=== PATIENT | female | born 1985 | race Caucasian/White ===

== ENCOUNTER 2016-12-06 07:43 | Day surgery (SDC) | payer MEDICARE ==
[~2016-12-06] VITALS: Ht 160 cm; Wt 53.1 kg
[2016-12-06 08:30] LABS: BASOPHILS 0.1 % (0-2); EOSINOPHILS 0.1 % (0-7); HEMOGLOBIN 14.5 g/dL (12-16); IMMATURE GRANULOCYTES 0.4 % (0-5); LYMPHOCYTES 13.2 % (15-50); MCH 28.9 pg (26.0-34.0); MCHC 30.9 g/dL (31.0-37.0); MCV 93.8 fL (80.0-100.0); MEAN PLATELET VOLUME 10.2 fL (7.4-10.4); MONOCYTES 5.6 % (2-11); NEUTROPHILS 80.6 % (40-80); PLATELET COUNT 203 10x3/uL (130-400); RBC 5.01 10x6/uL (4.00-5.40); RDW 17.9 % (11.5-14.5); WBC 8.2 10x3/uL (4.8-10.8)
[2016-12-06 08:40] LABS: ANION GAP 17.5 mmol/L (8-16); CALCIUM 10.1 mg/dL (8.5-10.1); CARBON DIOXIDE 25.5 mmol/L (21.0-32.0); CREATININE - SERUM 4.3 mg/dL (0.6-1.3)
[2016-12-06 08:41] LABS: APTT 29.4 SECONDS (22.8-39.4); INR 1.12 (0.85-1.17); PROTIME 14.3 SECONDS (11.6-15.0)
[2016-12-06] MEDS ORDERED: SANTYL30 GM TP (08:45)
[2016-12-06] MEDS ORDERED: BAYER CHEWABLE81 MG PO (08:46)
[2016-12-06] MEDS ORDERED: CLEOCIN HCL300 MG PO (08:48)
[2016-12-06] MEDS ORDERED: ULTRAM50 MG PO (08:48)
[2016-12-06 08:57] VITALS: BP 151/113; Ht 160 cm; Wt 53.1 kg
[2016-12-06] MEDS ORDERED: COREG6.25 MG PO (09:33)
[2016-12-06] MEDS ORDERED: HYDROCODON-ACE1 EAC7 PO (13:59)
--- NOTE | 2016-12-06 15:35 | NUR ---
DISCHARGE INSTRUCTIONS REVIEWED WITH PATIENT, AWAITING HEPARIN FOR FLUSHING DIALYSIS CATHETER BEFORE DISCHARGE
--- NOTE | 2016-12-06 16:12 | NUR ---
DIALYSIS CATHETER FLUSHED WITH 1.6 ML OF 1000 UNITS/ML, PATIENT DISCHARGED HOME VIA WHEELCHAIR TO PRIVATE VEHICLE WITH SPOUSE
--- NOTE | 2016-12-10 10:42 | OP ---
PATIENT NAME: JOHN CARMONA MEDICAL RECORD: [id number] :85 LOCATION:[facility] ADMISSION DATE: SURGEON: CHIQUI GOMEZ MD DATE OF OPERATION: 12/06/2016 REFERRED BY: Esperanza Schuler MD. PREOPERATIVE DIAGNOSES: End-stage renal disease and dependent on hemodialysis, presently catheter dependent and needs a long-term dialysis access. POSTOPERATIVE DIAGNOSES: End-stage renal disease and dependent on hemodialysis, presently catheter dependent and needs a long-term dialysis access. OPERATION PERFORMED: Right arm brachial artery to basilic vein Isabel type AV fistula, first of two planned operation to create a brachial artery to translocated basilic vein AV fistula. SURGEON: Chiqui Gomez MD. ANESTHESIA: General with LMA per CUSTOMER SUPPLY CHAIN ANALYST. PREOPERATIVE NOTE: Ms. Carmona is a 31-year-old white female on chronic hemodialysis 3 days a week with a right internal jugular tunneled dialysis catheter or one like it has been present in that site for about a year. The patient has a history of staphylococcal infections and open heart surgery and valve replacements and development of end-stage renal disease and joining the dialysis population around that time. She has lupus and is on steroids. She has rather small blood vessels and was brought to the operating room to try to create a fistula, if possible avoiding a graft and her larger veins seemed to be in the right arm. Though she is right handed, we will do the operation there. DESCRIPTION OF PROCEDURE: Under general anesthesia in supine position, the patient was prepped and draped in a sterile manner. I examined her with ultrasound after applying a [place] drain as a proximal venous tourniquet and nitroglycerin paste was applied to the skin. Veins in the forearm were very small. The radial artery was relatively small for a fistula in my opinion and I eventually went to the antecubital space where the brachial artery was larger though still small, only about 3 mm in diameter. There was at least a good median cubital vein which seem to runoff via both the basilic and cephalic, although the basilic appeared to be a little larger and more dominant venous drainage. I made a transverse incision there and exposed the veins and the brachial artery. The artery was in fact very small, but when treated with papaverine, it did dilate slightly and was suitable for an attempted fistula construction. The venous drainage was best to the basilic vein and the communications with the cephalic were ligated and divided. The vein was transected at the confluence to form the anastomosis. The artery was opened and flushed proximally and distally with heparinized saline and occluded with Silastic loops. The vein was flushed with heparinized saline and occluded with an atraumatic vascular clamp. An end-to-side vein to artery anastomosis was then performed with running 7-0 Prolene. With completion of the anastomosis and release of the occluding loops and clamps, excellent flow developed right away in the fistula and the suture line was hemostatic. The wound was irrigated with saline and infiltrated and irrigated with 0.25% Marcaine without epinephrine. The wound was closed with interrupted inverted 3-0 Vicryl and running intracuticular 4-0 Monocryl and Dermabond glue. Doppler examination OPERATIVE REPORT [id number] JOHN CARMONA demonstrated good flow in the basilic vein above the anastomosis and preservation of flow in the brachial artery distal to the anastomosis and radial artery. The patient's wound was dressed with Dermabond glue, Maxorb Ag, Tegaderm and Cavilon skin prep and she was awakened and taken to the recovery room in stable condition. Blood loss during the procedure was insignificant, unreplaced and all sponges, instruments, and needles were accounted for and no drain was used and no surgical specimen was submitted for histopathology. PLAN: The patient should be able to go home today. Continue her home medications and usual dialysis schedule. She was given a prescription for 30 [place] 5/325 tablets 1 p.o. q.4 hours p.r.n. pain. She will be asked to return to see me in my office in approximately 2 weeks and she may leave the original operative dressing intact until that time. It is waterproof and she may wash over it as desired. When I see her in the office next, I hope to be able to schedule her soon thereafter for the second staged operation to create a translocated basilic vein fistula. TRANSINT:[id number] Voice Confirmation ID: [id number] DOCUMENT ID: [id number] CHIQUI GOMEZ MD at 1042 CC: ESPERANZA SCHULER MD [id number] DICTATION DATE: 12/06/16 1413 REGULATORY COORDINATOR: 12/06/16 8260 [facility] 12/06/16 [facility] [address] [id number]
== END 2016-12-06 16:15 | disposition home or self-care (01) ==
LOC: D.OPS 07:43
PROVIDERS: Internal Medicine Nephrology
DX: I12.0 Hypertensive chronic kidney disease with stage 5 chronic kidney disease or end stage renal disease (principal); N18.6 End stage renal disease; Z99.2 Dependence on renal dialysis; Z95.2 Presence of prosthetic heart valve; M32.14 Glomerular disease in systemic lupus erythematosus; Z79.52 Long term (current) use of systemic steroids

== ENCOUNTER → 2016-12-22 13:11 | Outpatient (CLI) | payer MEDICAID ==
[2016-12-06 08:57] VITALS: BMI 20.7
[~2016-12-22 13:11] MED LIST: BAYER CHEWABLE81 MG PO; CLEOCIN HCL300 MG PO; COREG6.25 MG PO; HYDROCODON-ACE1 EAC7 PO; SANTYL30 GM TP; ULTRAM50 MG PO
== END | disposition home or self-care (01) ==
LOC: D.US 13:11
DX: R19.00 Intra-abdominal and pelvic swelling, mass and lump, unspecified site (principal)

== ENCOUNTER → 2017-01-06 07:56 | Day surgery (SDC) | payer MEDICAID ==
[~2017-01-06] VITALS: Ht 160 cm; Wt 56.2 kg
--- NOTE | ~2017-01-06 | OP ---
PATIENT NAME: JOHN CARMONA MEDICAL RECORD: [id number] :85 LOCATION:[facility] ADMISSION DATE: SURGEON: CHIQUI GOMEZ MD DATE OF SURGERY: 01/06/17 REFERRING PHYSICIAN: Dr. Schuler PREOPERATIVE DIAGNOSIS: End-stage renal disease, systemic lupus erythematosus, dependence upon chronic hemodialysis and now wound dehiscence with underlying fat necrosis and infection in her right arm antecubital incision where she recently had a brachial artery to basilic vein arteriovenous fistula construction. POSTOPERATIVE DIAGNOSIS: End-stage renal disease, systemic lupus erythematosus, dependence upon chronic hemodialysis and now wound dehiscence with underlying fat necrosis and infection in her right arm antecubital incision where she recently had a brachial artery to basilic vein arteriovenous fistula construction. OPERATION PERFORMED: Wound exploration with sharp debridement and application of Wound VAC dressing. ANESTHESIA: Local 1% Lidocaine with IV sedation and monitoring per CABLE SWAGER. SURGEON: Chiqui Gomez MD PREOPERATIVE NOTE: The patient is an unfortunate 31-year-old white female patient from near [place]. She has systemic lupus with multiple end organ complications including end-stage renal disease. She is dependent upon chronic dialysis. I recently constructed a right brachial artery to basilic vein arteriovenous fistula as a first stage procedure with plans to perform a second stage inversion to translocated basilic vein fistula. Actually, that was to have been scheduled today. However, the patient developed severe wound dehiscence with underlying fat necrosis and infection and is brought to the hospital today just to explore and debride the wound. Actually I had seen the patient in postop follow up in my office once and her wound appeared to be healing well and it was at that time when she was scheduled for the second procedure. For now everything else, the second stage fistula and the laparoscopic peritoneal dialysis catheter are on hold. PROCEDURE: In the supine position, the patient was prepped and draped in sterile manner. I infiltrated the wound and surrounding tissues carefully with 1% Lidocaine. I gently explored the wound and found that there was fat necrosis down to the muscle and fascial level on the lateral aspect. Fortunately there was still some viable fat and granulation tissue covering the fistula itself. I debrided the wound as far as I felt it needed and then dressed it with Adaptic and applied. A Wound VAC dressing with peters sponge. The patient will have a VAC via applied them being sent home from outpatient today. We will make a outpatient home health referral so that she can start Wound VAC dressing changes starting on Monday and then three times a week at least until she comes back to see me in office in two weeks. The patient is returned to the outpatient department. The wound care nurse will examine her and along with nursing staff and case manages help make the appropriate home health referral and do the paperwork for [facility]. OPERATIVE REPORT [id number] JOHN CARMONA JAMES MD CC: ESPERANZA SCHULER MD [id number] DICTATION DATE: 01/06/171820 MOTORIZED SQUAD COMMANDING OFFICER: TC 01/07/171820 [facility] 01/06/17 [facility] [address] [place] [address]
[~2017-01-06 07:56] MED LIST changes: +LEVAQUIN250 MG PO
[2017-01-06 09:32] LABS: BASOPHILS 0.2 % (0-2); EOSINOPHILS 1.1 % (0-7); HEMATOCRIT 45.2 % (36.0-48.0); HEMOGLOBIN 13.8 g/dL (12-16); IMMATURE GRANULOCYTES 0.4 % (0-5); LYMPHOCYTES 16.6 % (15-50); MCH 29.9 pg (26.0-34.0); MCHC 30.5 g/dL (31.0-37.0); MEAN PLATELET VOLUME 10.1 fL (7.4-10.4); MONOCYTES 5.8 % (2-11); NEUTROPHILS 75.9 % (40-80); RBC 4.61 10x6/uL (4.00-5.40); RDW 18.4 % (11.5-14.5); WBC 5.3 10x3/uL (4.8-10.8)
[2017-01-06 09:44] LABS: APTT 26.2 SECONDS (22.8-39.4); INR 1.06 (0.85-1.17); PROTIME 13.7 SECONDS (11.6-15.0)
[2017-01-06 09:46] LABS: PLATELET COUNT 127 10x3/uL (130-400)
[2017-01-06 09:49] LABS: ANION GAP 15.1 mmol/L (8-16); CALCIUM 8.8 mg/dL (8.5-10.1); CARBON DIOXIDE 25.5 mmol/L (21.0-32.0); CREATININE - SERUM 3.8 mg/dL (0.6-1.3); POTASSIUM - SERUM 4.6 mmol/L (3.5-5.1)
[2017-01-06 11:23] VITALS: Ht 160 cm; Wt 56.2 kg
--- NOTE | 2017-01-06 19:57 | NUR ---
1545 WOUND CARE NURSE HERE TO REPLACE WOUND VAC MACHINE, 1600 [facility] NURSE CALLED TO SET UP WOUND VAC DRESSING CHANGE, STATED THEY COULD NOT DO DRESSING CHANGE DUE TO PT WILL BE USING SITE. DEBORAH CALLED MADE TO FIND SOMEONE TO DO WOUND VAC CHANGE , CALL [facility] THEY WERE CLOSED, CALLED OUTPT AT [facility], UNIT WAS CLOSED , CALL [facility] THEY WERE CLOSED, CALLED HER DIALYSIS UNIT THEY COUL NOT DO IT .DR GOMEZ IN SURGERY PT WANTING TO GO HOME 1800 DR GOMEZ CALLED BACK NEW ORDERS , PT CAN BE ADMITTED OR COME BACK HERE ON MONDAY,
== END | disposition home or self-care (01) ==
LOC: D.OPS 07:56
PROVIDERS: Surgery
DX: T81.31XA Disruption of external operation (surgical) wound, not elsewhere classified, initial encounter (principal); T81.4XXA Infection following a procedure, initial encounter; N18.6 End stage renal disease; M32.9 Systemic lupus erythematosus, unspecified; Z01.812 Encounter for preprocedural laboratory examination

== ENCOUNTER 2017-02-06 10:17 | Inpatient (IN) | payer MEDICAID ==
[~2017-02-06] VITALS: Ht 160 cm; Wt 73.6 kg
--- NOTE | ~2017-02-06 | HP ---
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 She was started on hemodialysis in May 2016. The patient had a mitral valve replacement, tricuspid valve replacement and a CABG times 1 in June 2016. Subsequently, she was hospitalized with a wound infection; however, with several weeks of IV antibiotics that has healed over the past 6 months, the patient has developed a wound on her buttocks and now has a new wound of her left lower leg, which appeared about 2 weeks ago. The patient complains of severe pain in her left leg with redness and open sore that has a dark middle, there is some yellow drainage, no odor. The patient was supposed to receive IV vancomycin during her last treatment, but refused to stay long enough to receive the IV antibiotic. She was given Levaquin p.o. last week. She is now being admitted with the left leg wound needing IV antibiotics and debridement. PAST MEDICAL HISTORY: 1. 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 Hemodialysis initiated May 2016. She has been noncompliant coming to her dialysis treatments and also noncompliant with her fluid intakes. She currently dialyzes with a catheter. She had a right AV fistula placed about [address] Russell, but has had difficulty healing due to her lupus. 2. Lupus nephritis. The patient was diagnosed with lupus at age 13. She had renal involvement at age 16 requiring Cytoxan. 3. Nephrotic syndrome. 4. Hypertension. 5. Chronic obstructive pulmonary disease. The patient is a current smoker, smokes 1 pack per day. 6. Congestive heart failure with valve disorder, status post mitral valve and tricuspid valve repair and CABG times 1 in June 2016 at [facility]. The patient's wound became infected after the surgery and required debridement and wire removal at the incision. She then had a flap replacement. 7. Thrombocytopenia. 8. Postop sternal wound. The patient had a sternal wound infection in June 2016, the wound was positive for E. coli and she was treated with IV antibiotics for several weeks. 9. Anemia of CKD. 10. Secondary hyperparathyroidism. 11. Coronary artery disease. She has had a CABG times 1 in 06/20/2016 at [facility]. She also has had abnormal stress test showing possible infarct. PAST MEDICAL HISTORY: 1. times 2. 2. Mitral valve and tricuspid valve replacement repair and CABG times June 2016 at [facility]. 3. AV fistula creation, November 2016, Dr. Russell. SOCIAL HISTORY: The patient is a current smoker, smoking 1 pack per day. Denies any illicit drug use. She is currently and has 2 children and the patient does not currently work. She is on disability. HISTORY AND PHYSICAL [id number] KRISTINEBERNICE SmythMEHRDAD PENINSULA MEDICATIONS: Ambien 5 mg p.o. q.h.s., aspirin 81 mg p.o. daily, Coreg 3.125 mg 1 tab p.o. b.i.d., Flexeril 10 mg 1 tab p.o. daily p.r.n., Lasix 40 mg 1-2 tabs daily on nondialysis days, Lexapro 10 mg p.o. daily, [place] 5/325 one tab q.4 p.r.n., Nephro-Estrella 1 tab p.o. daily, pantoprazole 40 mg 1 tab p.o. daily, Plaquenil 200 mg p.o. daily, Renvela 3 tabs p.o. t.i.d. with meals, gabapentin 100 mg p.o. t.i.d., fentanyl patch 50 mcg an hour every 72 hours, Requip 0.5 mg p.o. daily. ALLERGIES: DOXYCYCLINE, PENICILLIN, ZOFRAN, CIPRO, AMITRIPTYLINE. REVIEW OF SYSTEMS: Positive for chronic pain, wounds on her left buttock, her left lower leg. Positive for erythema on her left lower leg with tenderness and a necrotic wound. Positive for neuropathic pain, edema and shortness of breath. All other review of systems are negative. PHYSICAL EXAMINATION: GENERAL: Adult female in no acute distress. HEENT: Normocephalic, atraumatic. ENT: Oropharynx clear. No erythema or exudate. EYES: Pupils are equal, round and reactive to light. NECK: Supple, no JVD distention. No lymphadenopathy. HEART: Regular rate and rhythm. No murmur, rub or gallop. LUNGS: Clear bilaterally. No wheezing, rales or crackles. ABDOMEN: Soft, nontender, active bowel sounds times 4. SKIN: Has erythema left lower leg, discoloration in bilateral feet, dark pink to dusky blue wound left buttock. EXTREMITIES: +2 lower extremity edema. NEUROLOGIC: Awake, alert, oriented times 3. ASSESSMENT AND PLAN: 1. Necrotic wound left lower leg with possible gangrene. Start IV Zosyn and vancomycin. Consult surgery for debridement and possible wound culture. The patient also has discoloration in bilateral feet. We will need to check a CTA for circulation, possible peripheral vascular disease. Check blood cultures times 2. 2. End-stage renal disease. Continue hemodialysis. The patient currently is on hemodialysis 4 days a week for 2 hours each treatment in [place], we will dialyze her 3-1/2 hours, 3 days a week while on hospital. 5. Anemia of chronic kidney disease. Check CBC. Continue Epogen. 6. Hypertension. Continue home medications. 7. Lupus. Continue her Plaquenil and p.r.n. pain meds. 8. Hyperphosphatemia. Continue renal diet and Renvela t.i.d. with meals. TRANSINT:[id number] Voice Confirmation ID: [id number] DOCUMENT ID: [id number] Dictated By: MARIA GUADALUPE FLORIAN I have interviewed/examined the above patient and agree with these documented findings. HISTORY AND PHYSICAL [id number] JOHN CARMONA MICHAEL MD CC: [id number] DICTATION DATE: 02/06/17 1345 ELECTRICAL ENGINEERING DRAFTSPERSON: 02/06/17 1557 ADM [id number] [place] [address]
--- NOTE | 2017-02-06 10:45 | NUR ---
RECEIVED PATIENT AMBULATING TO ROOM 2139 FROM HER HOME. PATIENT'S FAMILY WITH HER. PATIENT HAD DOCTOR'S ORDERS TO BE HERE AT THE HOSPITAL AT 1030. PATIENT IS AWAKE, ALERT, AND ORIENTED X4. ORIENTED PATIENT TO ROOM AND CALL LIGHT.
[2017-02-06 10:57] VITALS: BP 109/76; Ht 160 cm; Wt 73.6 kg
--- NOTE | 2017-02-06 11:46 | NUR ---
SPOKE WITH GILL RENAL CHANTALE, ON THE PHONE REGARDING PATIENT'S ARRIVAL TO ROOM 2139. NO NEW ORDERS RECEIVED AT PRESENT TIME.
[2017-02-06 12:48] LABS: BASOPHILS 0.2 % (0-2); EOSINOPHILS 0.7 % (0-7); HEMATOCRIT 39.6 % (36.0-48.0); HEMOGLOBIN 12.4 g/dL (12-16); IMMATURE GRANULOCYTES 0.7 % (0-5); LYMPHOCYTES 14.1 % (15-50); MCHC 31.3 g/dL (31.0-37.0); MCV 95.9 fL (80.0-100.0); MEAN PLATELET VOLUME 9.8 fL (7.4-10.4); MONOCYTES 6.3 % (2-11); RBC 4.13 10x6/uL (4.00-5.40); RDW 18.3 % (11.5-14.5); WBC 4.6 10x3/uL (4.8-10.8)
[2017-02-06 12:50] LABS: PLATELET COUNT 203 10x3/uL (130-400)
[2017-02-06 12:55] LABS: ANION GAP 23.1 mmol/L (8-16); CALCIUM 7.1 mg/dL (8.5-10.1); CARBON DIOXIDE 21.7 mmol/L (21.0-32.0); CREATININE - SERUM 5.5 mg/dL (0.6-1.3)
[2017-02-06 12:59] LABS: POTASSIUM - SERUM 6.8 mmol/L (3.5-5.1)
[2017-02-06 15:31] VITALS: BP 105/68
--- NOTE | 2017-02-06 15:38 | NUR ---
Wound care: Pt has an open wound on left lateral lower leg measuring 9cm x 4cm x 0.4cm. The wound bed is covered with brown necrotic tissue. There is a musty odor and a moderate serous drainage. The edges of the wound are bright red. Pt states it started as a "water blister" and eventually opened up. She has had it for quite some time now. Right lateral lower leg has a wound measuring 3cm x 2.5cm. It has bright red edges and a serous drainage. Left hip is an unstageable pressure injury. 1.5cm x 3cm x 0.5cm x 1.5cm from 12 to 12 oclock. The wound bed is covered in yellow/newberry necrotic tissue. She says she has had this since June. Unable to culture these wounds d/t necrotic tissue and inability to get to clean tissue. Recommend wet to dry with a Dakins solution for the left lateral lower leg and the left hip and antibiotic ointment for right leg. Dr. Russell has been consulted for debridement. Wound care will continue monitoring.
[2017-02-06 20:59] VITALS: BP 105/67
--- NOTE | 2017-02-06 21:30 | NUR ---
COME TO CHECK PT'S LEG. LEG NO DRAINAGE AND OPEN TO AIR.
--- NOTE | 2017-02-06 21:40 | NUR ---
PT C/O PAIN IN LEG, A LEVEL OF 10, DOCTOR PRESCRIBE DILAUDID.
--- NOTE | 2017-02-06 22:30 | NUR ---
CT STAFF TAKE PT TO DO CT SCAN.
--- NOTE | 2017-02-06 22:50 | NUR ---
PT COME BACK FROM CT UNIT AND GIVE KAYEXELATE ORDERED.
--- NOTE | 2017-02-07 00:49 | NUR ---
PT'S POTASSIUM 6.8, PRESCRIBED KAYEXELATE FOR PT.
[2017-02-07 01:20] VITALS: BP 93/53
--- NOTE | 2017-02-07 01:54 | NUR ---
REST IN BED, EYE CLOSE, BED LOW,CALL LIGHT WITHIN REACH.
--- NOTE | 2017-02-07 02:59 | NUR ---
PT RESTING IN BED WITH NO DISTRESS. RESPS EVEN/NONLABORED. CPOC.
[2017-02-07 05:04] VITALS: BP 96/61
[2017-02-07 05:26] LABS: BASOPHILS 0.2 % (0-2); EOSINOPHILS 0.8 % (0-7); HEMATOCRIT 38.3 % (36.0-48.0); HEMOGLOBIN 11.9 g/dL (12-16); IMMATURE GRANULOCYTES 0.6 % (0-5); LYMPHOCYTES 8.5 % (15-50); MCH 29.5 pg (26.0-34.0); MCHC 31.1 g/dL (31.0-37.0); MCV 94.8 fL (80.0-100.0); MEAN PLATELET VOLUME 9.6 fL (7.4-10.4); MONOCYTES 6.1 % (2-11); NEUTROPHILS 83.8 % (40-80); PLATELET COUNT 196 10x3/uL (130-400); RBC 4.04 10x6/uL (4.00-5.40); RDW 18.1 % (11.5-14.5); WBC 4.7 10x3/uL (4.8-10.8)
[2017-02-07 05:41] LABS: CARBON DIOXIDE 20.8 mmol/L (21.0-32.0)
[2017-02-07 05:42] LABS: ANION GAP 23.5 mmol/L (8-16); POTASSIUM - SERUM 6.3 mmol/L (3.5-5.1)
[2017-02-07 05:43] LABS: CALCIUM 6.7 mg/dL (8.5-10.1)
[2017-02-07 05:45] LABS: INR 1.24 (0.85-1.17); PROTIME 15.5 SECONDS (11.6-15.0)
--- NOTE | 2017-02-07 07:20 | NUR ---
SX TEAM HERE TO TAKE PT FOR PROCEDURE. CONSENTS SIGNED AND OBTAINED IN CHART. PREOP COMPLETED PER NIGHTSHIFT NURSE. WILL CPOC.
--- NOTE | 2017-02-07 08:30 | NUR ---
PT BACK FROM SX AND IS APPARENTLY NOT GOING TO HAVE IT DONE R/T LABS. PT MAY BE BEING TRANSFERRED TO [facility] AND OF RENAL IS WORKING ON THAT FOR BEST PLANNED OUTCOME OF SX/PROCEDURE. PT VERBALIZED UNDERSTANDING AND IS C/O SHARP THROBBING PAIN IN BILAT LEGS REQUESTING AND WILL BE PROVIDED WITH PRN PAIN MEDICATION. PT HAS SORE TO HER L.LOWER LEG AND HER L.HIP BUT WILL NOT ALLOW ME TO DO DRSG CHANGE OR TOUCH THEM AND STATES "ITS KILLING ME, LEAVE THEM ALONE" WILL TRY AND RELIEVE PATIENTS PAIN AND THEN DO DRESSING CHANGES LATER IF SHE ALLOWS. CL IN REACH, BED IN LOWEST, SIDE RAILS X2. WILL CPOC.
[2017-02-07] MEDS ORDERED: ELAVIL75 MG PO (08:50)
[2017-02-07] MEDS ORDERED: PROTONIX20 MG PO (08:51)
[2017-02-07] MEDS ORDERED: XANAX2 MG PO (08:51)
[2017-02-07] MEDS ORDERED: GABAPENTIN100 MG PO (08:51)
[2017-02-07] MEDS ORDERED: Levaquin PREMIX IV (10:55)
[2017-02-07] MEDS ORDERED: PLAQUENIL200 MG PO (10:55)
[2017-02-07] MEDS ORDERED: SODIUM THIOSULFATE IV (10:56)
[2017-02-07] MEDS ORDERED: RENAGEL800 MG PO (10:56)
[2017-02-07] MEDS ORDERED: DILAUDID INJ2 MG/ML IV (10:56)
--- NOTE | 2017-02-07 11:23 | NUR ---
Patient Name: JOHN CARMONA Admission Status: Elective Accout number: [id number] Admission Date: 02-06-2017 : 1985 Admission Diagnosis: Attending: ELENO Current LOS: 1 Anticipated DC Date: 02-07-2017 Planned Disposition: Acute Care Hospital Primary Insurance: [place] PR[employer] OPTIONS [place]IR[place] Discharge Planning Comments: * Is the patient Alert and Oriented? Yes 0 * How many steps to enter\exit or inside your home? 3 0 * PCP RICARDO RODRIGUEZ 0 * Pharmacy R[facility]O SAENZ 0 * Preadmission Environment Home with Family 0 * ADLs Independent 0 * Equipment None 0 * Other Equipment NO MEDICAL EQUIPMENT PROVIDER PREFERENCE 0 * List name and contact numbers for known caregivers / representatives who currently or will assist patient after discharge: BRIAN CARMONA, SPOUSE, 0 * Community resources currently utilized None 0 * Please name any agencies selected above. NONE 0 * Additional services required to return to the preadmission environment? Yes * Can the patient safely return to the preadmission environment? Yes 0 * Has this patient been hospitalized within the prior 30 days at any hospital? No 0 CM SPOKE TO BEDSIDE NURSE WHO INFORMED CM THAT PT NEEDS TRANSFER TO [facility] AND THAT DR. MAHER HAS ALREADY SPOKEN TO THE DOCTOR THERE AND RECEIVED ACCEPTANCE AT [facility]. CM NOTIFIED FAWN CASTAUTOMATION AND CONTROLS MANAGER WHO OBTAINED ADMINISTRATIVE APPROVAL FROM GABRIELA FISHMAN. MET WITH PT IN ROOM TO DISCUSS TRANSFER TO [facility]. PT REPORTS SPEAKING TO THE DOCTOR ABOUT IT AND IS IN AGREEMENT WITH TRANSFER. PT HAS ALREADY NOTIFIED HER SPOUSE. PT REPORTS LIVING AT HOME INDEPENDENTLY WITH HER SPOUSE. CM NOTIFIED PHOTOGRAPHER'S MODEL JAIRO BAUTISTA PERSONALLY AT HOSPITAL. CM CALLED [facility], , SPOKE TO JOEY WHO REPORTS THAT DR. HERNANDEZ HAS ACCEPTED PT FOR [facility] TRANSFER AND THE ACCESS TEAM WILL CALL THE BEDSIDE NURSE WHEN BED IS AVAILABLE TO COMPLETE TRANSFER ARRANGEMENTS. Russian Language Instructor: Sang Wright
--- NOTE | 2017-02-07 11:43 | NUR ---
PROVIDED PT WITH PRN PAIN MED FOR SEVERE BILAT LEG PAIN. PT READY FOR DIALYSIS AND AWAITING TRANSFER TO [facility]. NO FURTHER NEEDS AT THIS TIME. WILL CTM.
--- NOTE | 2017-02-07 15:03 | NUR ---
PT BACK FROM DIALYSIS. BP 104/66 HR 78 RR 16 WITH 98% ON RA AND TEMP 98.2. CALLED AND SPOKE TO [facility] COORDINATER AND PT IS FULLY ACCEPTED WITH ROOM READY H617. WILL GO OVER DISCHARGE PAPERS AND TEACHING AND THEN CALL REPORT TO [facility] FOR NURSE RECIEVING THAT PATIENT.
--- NOTE | 2017-02-07 15:28 | NUR ---
D/C PTS L.HAND PIV WITH CATHETER TIP FULLY INTACT. DISCHARGE TEACHING PROVIDED AND PT VERBALIZED UNDERSTANDING. PT IS COLLECTING BELONGINGS NOW. CALLED [facility] FOR TRANSPORTATION AND THEY ETA 30MINS THEN IN ROUTE TO [facility]. CALLED [facility] AND PT WILL BE GOING TO ROOM H617 AND SPOKE TO NURSE GREG STEVENSON AND GAVE REPORT. PT AWAITING TRANSFER.
--- NOTE | 2017-02-07 16:16 | NUR ---
[facility] HERE FOR TRANSPORT. ALL BELONGINGS AND PAPERS SENT WITH PATIENT. NO FURTHER NEEDS.
== END 2017-02-07 16:17 | disposition short-term general hospital (02) | DRG 299 ==
LOC: D.M2 10:17 → D.SDCHOLD 19:14 → D.M2 02-07 16:17
PROVIDERS: Emergency Medicine; Internal Medicine; Surgery; ADMIT Internal Medicine Nephrology
PROC: 5A1D00Z (ICD-10-PCS; principal; 2017-02-07)
DX: I96 Gangrene, not elsewhere classified (principal); N18.6 End stage renal disease; I13.2 Hypertensive heart and chronic kidney disease with heart failure and with stage 5 chronic kidney disease, or end stage renal disease; N25.81 Secondary hyperparathyroidism of renal origin; L97.929 Non-pressure chronic ulcer of unspecified part of left lower leg with unspecified severity; L94.2 Calcinosis cutis; L89.229 Pressure ulcer of left hip, unspecified stage; I50.9 Heart failure, unspecified; Z99.2 Dependence on renal dialysis; J44.9 Chronic obstructive pulmonary disease, unspecified; I25.10 Atherosclerotic heart disease of native coronary artery without angina pectoris; D63.1 Anemia in chronic kidney disease; Z91.15 Patient's noncompliance with renal dialysis; M79.89 Other specified soft tissue disorders; Z95.1 Presence of aortocoronary bypass graft; Z72.0 Tobacco use